=== PATIENT | female | born 1960 | race Caucasian/White ===

== ENCOUNTER → 2020-08-06 09:55 | Outpatient (CLI) | payer MEDICARE, OTHER, SELFPAY ==
--- NOTE | ~2020-08-06 | US_ITS ---
US breast BI complete 08/06/2020 11:08 Indication: Family history of breast cancer Procedure: High-resolution bilateral complete ultrasound of the breasts Comparison: Ultrasound dated 03/14/2018 Findings: Right breast ultrasound: At 2:00 there is a 2 mm cyst. At 3:00, 1 cm from the nipple, there is an oval hypoechoic mass measuri ng 3 mm without posterior features or internal vascularity. At 6:00, 5 cm from the nipple there is a 2 mm complicated cyst. At 8:00, 5 cm from the nipple, there is a calcification with posterior shadowi ng. At 11:00, 5 cm from the nipple there is an oval hypoechoic mass measuring 2 mm, likely benign cys ts. Left breast ultrasound: At 1:00, 2 cm from the nipple there is a 5 mm cyst. At 2:00, 4 cm from the nipple, there is an oval h ypoechoic mass with parallel orientation 5 mm. Without internal vascularity or posterior features. At 3:00, 3 cm from the nipple there is an oval hypoechoic mass measuring 4 mm without posterior featu res or internal vascularity. At 8:00, 3 cm from the nipple, there is a 2 mm cyst. Impression: 1: Probable benign bilateral breast masses. Ultrasound is not sensitive for breast cancer as a screen ing study. Calcifications cannot adequately be assessed with ultrasound. Complete evaluation with josefa gnostic bilateral mammogram is recommended. BI-RADS CATEGORY 0 - INCOMPLETE STUDY, NEED ADDITIONAL IMAGING EVALUATION. Reviewed, dictated and finalized at location A. Impression: 1: Probable benign bilateral breast masses. Ultrasound is not sensitive for mallorie ast cancer as a screening study. Calcifications cannot adequately be assessed w ith ultrasound. Complete evaluation with diagnostic bilateral mammogram is jayme mmended. BI-RADS CATEGORY 0 - INCOMPLETE STUDY, NEED ADDITIONAL IMAGING EVALUATION.
== END ==
PROVIDERS: PCP Family Medicine; Referring Provider Obstetrics & Gynecology; Visit Provider Obstetrics & Gynecology
DX: Z12.31 Encounter for screening mammogram for malignant neoplasm of breast (principal); R92.8 Other abnormal and inconclusive findings on diagnostic imaging of breast
CPT/HCPCS: 76641

== ENCOUNTER 2021-10-06 11:55 | Outpatient (CLI) | payer MEDICARE, OTHER, SELFPAY ==
--- NOTE | ~2021-10-06 | XR_ITS ---
EXAMINATION: XR abdomen/kub 1V EXAM DATE: 10/06/2021 12:17 INDICATION: Left flank pain, hematuria. TECHNIQUE: Frontal projection of the upper abdomen, frontal projection lower abdomen/pelvis for inter pretation. There is no prior study for comparison. FINDINGS: There are cholecystectomy clips. There is expected amount of colonic stool and gas obscur ing the renal contours. No small bowel dilation, nonobstructive bowel gas pattern. There are no s uspicious calcifications identified. There is no organomegaly suspected. The bones are unremarkabl e. There is no free intraperitoneal air. The lung bases are clear. IMPRESSION: Renal contours obscured by bowel gas. Reviewed, dictated and finalized at location A. [employer]
--- NOTE | ~2021-10-06 | CT_ITS ---
EXAMINATION: CT abdomen pelvis wo con DATE: 10/06/2021 12:12 INDICATION: Hematuria TECHNIQUE: Computed tomography (CT) of the abdomen and pelvis was performed without intravenous contr ast. Automated exposure control and iterative reconstruction technique were employed. The dose-length product was 262.98 mGy-cm. COMPARISON: 06/09/2010 FINDINGS: Mild discoid atelectasis in the right lower lobe. Heart size is normal. No pericardial or pleural eff usion. Cholecystectomy clips at the gallbladder fossa. 6 mm cyst in the right hepatic lobe. Pancreas, spleen and bilateral adrenal glands are normal. Kidneys, ureters and bladder are normal with no urol ithiasis, hydroureteronephrosis or perinephric/ureteral stranding. The uterus is not identified and h as likely been surgically resected. Metallic clip in the left hemipelvis. Large amount of stool scatt ered throughout the colon. Moderate sigmoid diverticulosis without adjacent from 3 change to suggest diverticulitis. No bowel obstruction. The appendix is not visualized. No pericecal inflammatory quick e to suggest acute appendicitis. No abscess or free intraperitoneal gas. No pathologically enlarged a bdominal or pelvic lymphadenopathy. Prominent osteitis pubis. IMPRESSION: 1. No urolithiasis or acute intra-abdominal/pelvic process. Reviewed, dictated and finalized at location B. [employer]
== END 2021-10-06 11:56 | disposition home or self-care (01) ==
PROVIDERS: PCP Family Medicine; Visit Provider Nurse Practitioner Family
DX: R10.819 Abdominal tenderness, unspecified site (principal); R31.9 Hematuria, unspecified; K57.30 Diverticulosis of large intestine without perforation or abscess without bleeding
CPT/HCPCS: 74018; 74176

== ENCOUNTER 2022-07-06 10:27 | Outpatient (CLI) | payer MEDICARE, OTHER, SELFPAY ==
--- NOTE | 2022-07-06 10:44 | ECG_ITS ---
Measurements Intervals [place] Rate: 72 P: 76 SD: 164 QRS: 69 QRSD: 98 T: 53 QT: 389 QTc: 426 Interpretive Statements SINUS RHYTHM INCOMPLETE RIGHT BUNDLE BRANCH BLOCK BORDERLINE ECG NO PREVIOUS ECG AVAILABLE FOR COMPARISON Electronically Signed On 07-06-2022 11:12:57 CDT by Segundo Pritchett D.O.
[2022-07-06 11:48] LABS: Hematocrit 37.3 % (37.0-47.0); Hemoglobin 11.9 g/dL (12.0-15.0); Mean Corpuscular HGB Conc 31.9 g/dl (32-36); Mean Corpuscular Volume 97.1 fl (80-100); Mean Platelet Volume 9.7 fl (7.4-10.4); Platelet Count Result 231 k/mm3 (150-375); Red Blood Count 3.84 M/mm3 (4.2-5.4); Red Cell Distribution Width 12.6 % (11.5-14.5); White Blood Count 6.1 K/mm3 (4.5-10.0)
[2022-07-06 12:06] LABS: Alanine Aminotransferase 16 U/L (6-35); Albumin Level 4.1 g/dL (3.5-5.1); Alkaline Phosphatase 70 U/L (38-126); Anion Gap 7 mmol/L (8-16); Aspartate Amino Transferase 24 U/L (14-36); Bilirubin,Total 0.3 mg/dL (0.2-1.3); Blood Urea Nitrogen 12 mg/dL (7-17); Calcium 9.4 mg/dL (8.4-10.2); Carbon Dioxide 31 mmol/L (22-30); Chloride 99 mmol/L (98-107); Estimated Glomerular Filt Rate 50; Glucose 91 mg/dL (65-110); Potassium 3.8 mmol/L (3.4-5.0); Sodium 137 mmol/L (137-145)
== END 2022-07-06 10:28 | disposition home or self-care (01) ==
PROVIDERS: PCP Family Medicine; Visit Provider Nurse Practitioner Family
DX: R42 Dizziness and giddiness (principal); R60.9 Edema, unspecified
CPT/HCPCS: 36415; 80053; 84443; 85027; 93005

== ENCOUNTER 2022-08-07 11:08 | Outpatient (CLI) | payer MEDICARE, OTHER, SELFPAY ==
--- NOTE | ~2022-08-07 | XR_ITS ---
EXAM: XR hand RT 2V DATE: 08/07/2022 11:30 HISTORY: M79.89 - Other specified soft tissue disorders . COMPARISON: None available. FINDINGS: Decreased mineralization. No fracture or dislocation. No lytic or blastic lesion. Prior tr apezium resection. Mild joint space narrowing and marginal osteophytosis in the thumb interphalangeal joint and DIP joints of the fingers. No erosion or periosteal change. Soft tissues within normal mckeon its. IMPRESSION: Osteopenia. 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 Reviewed, dictated and finalized at location K.
--- NOTE | ~2022-08-07 | CT_ITS ---
EXAMINATION: CT brain wo con INDICATION: Head injury COMPARISON: None TECHNIQUE: Standard unenhanced head CT. The dose-length product (DLP) was 605.33 mGy-cm. The mA was a djusted according to patient size. Iterative reconstruction technique was employed. FINDINGS: There is no acute intraparenchymal hemorrhage. No evidence of mass lesion. No evidence of a cute infarction. There is mild periventricular and subcortical hypodensity probably related to small vessel ischemic disease. There is mild prominence of the sulci and ventricles related to cerebral atr ophy. Intracranial calcified cerebral atherosclerosis is noted. There are no extra-axial collections. There is no mass effect or midline shift. The orbits and soft tissues are unremarkable. There is mil d mucosal thickening of the paranasal sinuses. IMPRESSION: 1. No acute intracranial abnormality. 2. Age related findings. Reviewed, dictated and finalized at location A.
== END 2022-08-07 11:09 | disposition home or self-care (01) ==
LOC: ANHIMG 11:14
PROVIDERS: PCP Family Medicine; Visit Provider Nurse Practitioner Family
DX: S09.90XA Unspecified injury of head, initial encounter (principal); M79.89 Other specified soft tissue disorders; M19.041 Primary osteoarthritis, right hand
CPT/HCPCS: 70450; 73120

== ENCOUNTER 2022-08-22 07:28 | Outpatient (CLI) | payer MEDICARE, OTHER, SELFPAY ==
--- NOTE | ~2022-08-22 | US_ITS ---
EXAMINATION: US carotid duplex BI DATE: 08/22/2022 08:02 INDICATION: Syncope and collapse TECHNIQUE: Grayscale, color Doppler, and pulsed Doppler images of the cervical carotid arteries were obtained. The degree of vessel stenosis is placed in one of the following categories: normal, <50%, 5 0-69%, >=70% but less than near-occlusion, near-occlusion, or total occlusion. Note that percent sten osis relative to normal distal artery lumen diameter is indirectly measured from velocity measurement s as described by Christiano, et al. Radiology 2003; [id number]:340-346. COMPARISON: None. FINDINGS: RIGHT: The right common carotid artery (CCA) peak systolic velocity (PSV) is 102 cm/s. The right internal ca rotid artery (ICA) PSV is 127 cm/s. The right ICA end-diastolic velocity (EDV) is 36 cm/s. The right ICA/CCA PSV ratio is 1.2. Grayscale and color Doppler images demonstrate no evident stenosis or plaqu e in the ICA. The external carotid artery (ECA) PSV is 99 cm/s. There is antegrade flow in the right vertebral artery. LEFT: The left CCA PSV is 121 cm/s. The left ICA PSV is 95 cm/s. The left ICA EDV is 27 cm/s. The left ICA/ CCA PSV ratio is 0.8. Grayscale and color Doppler images demonstrate no evident stenosis or plaque in the ICA. The ECA PSV is 109 cm/s. There is antegrade flow in the left vertebral artery. IMPRESSION: 1. No evident plaque or stenosis in the right internal carotid artery. 2. No evident plaque or stenosis in the left internal carotid artery. Reviewed, dictated and finalized at location A.
== END 2022-08-22 07:29 | disposition home or self-care (01) ==
PROVIDERS: PCP Family Medicine; Visit Provider Nurse Practitioner Family
DX: R55 Syncope and collapse (principal)
CPT/HCPCS: 93880

== ENCOUNTER 2022-08-30 16:25 | Outpatient (CLI) | payer MEDICARE, OTHER, SELFPAY ==
--- NOTE | ~2022-08-30 | MR_ITS ---
EXAMINATION: MR brain/brain stem wo/w con DATE: 08/30/2022 17:53 INDICATION: Vertigo. Syncope. TECHNIQUE: Magnetic resonance imaging (MRI) of the brain and brainstem was performed without and with 11 mL MultiHance intravenous contrast. COMPARISON: Brain MRI 06/09/2010, head CT 08/07/2022 FINDINGS: There are scattered areas of nonspecific increased T2-weighted signal intensity in the cere bral white matter, which is within normal limits for the patient's age. There is no intracranial hemo rrhage, acute infarction, or abnormal intracranial mass lesion. The ventricles are normal in size. Ri ght maxillary sinus is small. The orbits are normal. The paranasal sinuses are clear. IMPRESSION: 1. Normal aging brain. Reviewed, dictated and finalized at location A. IMPRESSION: 1. Normal aging brain.
== END 2022-08-30 16:26 | disposition home or self-care (01) ==
PROVIDERS: PCP Family Medicine; Visit Provider Nurse Practitioner Family
DX: R42 Dizziness and giddiness (principal); R55 Syncope and collapse
CPT/HCPCS: 70553; A9577

== ENCOUNTER 2024-05-12 13:58 | Outpatient (CLI) | payer MEDICARE, OTHER, SELFPAY ==
--- NOTE | ~2024-05-12 | XR_ITS ---
EXAMINATION: XR chest 2V Exam Date/Time: 05/12/2024 14:11 CDT HISTORY: INCREASED SOB X1 MONTH, REACTIVE ISSUES FROM SMELLS Comparison: None. RESULT: Lines, tubes, and devices: Loop recorder. Cholecystectomy clips. Lungs and pleura: Clear. Cardiomediastinal silhouette: Unremarkable. Other: No acute osseous or upper abdominal finding. IMPRESSION: No acute cardiopulmonary process. Reviewed, dictated and finalized at location K.
== END 2024-05-12 13:59 | disposition home or self-care (01) ==
PROVIDERS: PCP Family Medicine; Visit Provider Physician Assistant Medical
DX: R06.02 Shortness of breath (principal)
CPT/HCPCS: 71046